=== PATIENT | female | born 1995 | race Caucasian/White ===

== ENCOUNTER 2016-04-09 12:37 | Inpatient (IN) | payer BC ==
[2016-04-09 13:23] LABS: AMPHETAMINE SCREEN URINE NOT DETECTED; BARBITURATE SCREEN URINE NOT DETECTED; BENZODIAZEPINE SCREEN URINE NOT DETECTED; COCAINE SCREEN URINE NOT DETECTED; METHADONE SCREEN URINE NOT DETECTED; METHAMPHETAMINE SCREEN NOT DETECTED; OPIATE SCREEN URINE NOT DETECTED; OXYCODONE SCREEN URINE NOT DETECTED; PHENCYCLIDINE SCREEN URINE NOT DETECTED; PROPOXYPHENE SCREEN URINE NOT DETECTED; THC SCREEN URINE NOT DETECTED; TRICYCLIC ANTIDEPRESSANT SCRN NOT DETECTED
[2016-04-09 13:24] LABS: BASO % 0.6 % (0-6); EOS % 2.1 % (0-6); HEMATOCRIT 43.9 % (35.0-47.0); HEMOGLOBIN 15.9 gm/dl (11.6-16.0); LYMPH % 19.6 % (16-45); MEAN CELL VOLUME 77.6 fl (81-97); MEAN CORPUSCULAR HGB CONC 36.2 g/dl (32-36); MEAN PLATELET VOLUME 11.2 fl (7.4-10.4); MONO % 9.7 % (0-9); PLATELET COUNT 316 K/uL (130-400); RED BLOOD COUNT 5.66 M/uL (3.80-5.40); RED CELL DISTRIBUTION WIDTH 13.3 % (11.5-14.5)
[2016-04-09 13:34] LABS: ANION GAP 19.9 (7-16); BLOOD UREA NITROGEN 12 mg/dL (7-17); CARBON DIOXIDE 11.1 mmol/L (22-30); CREATINE PHOSPHOKINASE 73 U/L (30-135); CREATININE 0.9 mg/dL (0.52-1.04); GLUCOSE,RANDOM 378 mg/dL (70-110)
[2016-04-09 13:46] LABS: CKMB 1.9 ug/L (0-6)
[2016-04-09 13:50] LABS: TROPONIN I < 0.012 ng/mL (0.00-0.034)
[2016-04-09] MEDS ORDERED: PROMETHAZINE HCL 25 MG/ML VIAL IVP ONE ×2 (13:55→15:56)
--- NOTE | 2016-04-09 14:05 | Emergency Department Record ---
History of Present Illness - General Chief Complaint: Chest Pain Stated Complaint: CHEST PAIN Time Seen by Provider: 04/09/16 12:46 Source: Patient, Family Mode of Arrival: Ambulatory Limitations: No limitations - History of Present Illness Initial Comments: pt started feeling like her bp was high on saturday and had nausea and vomiting x 2 and developed chest pain today. she felt flushed. she denies any new meds. Onset/Timin -: Days(s) Onset: During rest Pain Location: Substernal Pain Radiation: None Severity: Mild Severity scale (1-10): 2 Quality: Aching Consistency: Constant Improves With: Nothing Worsens With: Nothing Anginal Symptoms: Nausea, Vomiting Treatments Prior to Arrival: Other Treatment Prior to Arrival Comment:: Motrin last night - Related Data Home Medications Medication Instructions Recorded Confirmed Last Taken Duloxetine HCl 30 mg PO BID cap 01/17/16 04/09/16 Unknown Metformin HCl 500 mg PO BID tab 01/17/16 04/09/16 04/08/16 Allergies Allergy/AdvReac Type Severity Reaction Status Date / Time amoxicillin [Amoxicillin] Allergy RASH Verified 04/09/16 12:39 cephalexin monohydrate Allergy RASH Verified 04/09/16 12:39 [From Keflex] Penicillins Allergy rash Verified 04/09/16 12:39 sulfamethoxazole Allergy RASH Verified 04/09/16 12:39 [From Bactrim] trimethoprim [From Bactrim] Allergy RASH Verified 04/09/16 12:39 Travel Screening - Travel/Exposure Within Last 30 Days Have you traveled within the last 30 days?: No Review of Systems Reviewed: No additional complaints except as noted below Constitutional: Reports: As per HPI. Denies: Chills, Fever, Malaise, Night sweats, Weakness, Weight change Eyes: Reports: As per HPI. Denies: Eye discharge, Eye pain, Photophobia, Vision change ENT: Reports: As per HPI. Denies: Congestion, Dental pain, Ear pain, Epistaxis , Hearing loss, Throat pain Respiratory: Reports: As per HPI. Denies: Cough, Dyspnea, Hemoptysis, Stridor, Wheezes Cardiovascular: Reports: As per HPI. Denies: Arrhythmia, Chest pain, Dyspnea on exertion, Edema, Murmurs, Orthopnea, Palpitations, Paroxysmal nocturnal dyspnea, Rheumatic Fever, Syncope Endocrine: Reports: As per HPI. Denies: Fatigue, Heat or cold intolerance, Polydipsia, Polyuria Gastrointestinal: Reports: As per HPI. Denies: Abdominal pain, Constipation, Diarrhea, Hematemesis, Hematochezia, Melena, Nausea, Vomiting Genitourinary: Reports: As per HPI. Denies: Abnormal menses, Discharge, Dyspareunia, Dysuria, Frequency, Hematuria, Incontinence, Retention, Urgency Musculoskeletal: Reports: As per HPI. Denies: Arthralgia, Back pain, Gout, Joint swelling, Myalgia, Neck pain Skin: Reports: As per HPI. Denies: Bruising, Change in color, Change in hair/ nails, Lesions, Pruritus, Rash Neurological: Reports: As per HPI. Denies: Abnormal gait, Confusion, Headache, Numbness, Paresthesias, Seizure, Tingling, Tremors, Vertigo, Weakness Psychiatric: Reports: As per HPI. Denies: Anxiety, Auditory hallucinations, Depression, Homicidal thoughts, Suicidal thoughts, Visual hallucinations Hematological/Lymphatic: Reports: As per HPI. Denies: Anemia, Blood Clots, Easy bleeding, Easy bruising, Swollen glands Past Medical History - SOCIAL HISTORY Smoking Status: Never smoker Alcohol Use: None Drug Use: None - RESPIRATORY Hx Respiratory Disorders: No - CARDIOVASCULAR Hx Cardio Disorders: No - NEURO Hx Neuro Disorders: No - GI Hx GI Disorders: No - Hx Genitourinary Disorders: Yes Comment:: Polycystic Ovaries - ENDOCRINE Hx Endocrine Disorders: Yes Hx Diabetes: (boderline) - MUSCULOSKELETAL Hx Musculoskeletal Disorders: No - PSYCH Hx Psych Problems: Yes Hx Anxiety: Yes Hx Depression: Yes - HEMATOLOGY/ONCOLOGY Hx Hematology/Oncology Disorders: No Family Medical History Any Significant Family History?: Yes Hx Diabetes: Father Hx HTN: Mother, Grandparents Physical Exam - General General Appearance: Alert, Oriented x3, Cooperative, Mild distress - Head Head exam: Normal inspection - Eye Eye exam: Normal appearance, PERRL, EOMI Pupils: Normal accommodation - ENT ENT exam: Normal exam, Mucous membranes dry, Normal external ear exam, Normal orophraynx Ear exam: Normal external inspection. negative: External canal tenderness Nasal Exam: Normal inspection. negative: Discharge, Sinus tenderness Mouth exam: Normal external inspection, Tongue normal Teeth exam: Normal inspection. negative: Dental caries Throat exam: Normal inspection. negative: Tonsillar erythema, Tonsillar exudate - Neck Neck exam: Normal inspection, Full ROM. negative: Tenderness - Respiratory Respiratory exam: Normal lung sounds bilaterally. negative: Respiratory distress - Cardiovascular Cardiovascular Exam: Normal rhythm, Normal heart sounds, Tachycardia - GI/Abdominal GI/Abdominal exam: Soft, Normal bowel sounds. negative: Tenderness - Rectal Rectal exam: Deferred - exam: Deferred - Extremities Extremities exam: Normal inspection, Full ROM, Normal capillary refill. negative: Tenderness - Back Back exam: Reports: Normal inspection, Full ROM. 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 ADM/Transfer/OP Study) - Data Complexity MDM Data: Labs Ordered and/or Reviewed, X-Ray Ordered and/or Reviewed, EKG Ordered and/or Reviewed - Lab Data Result diagrams: 04/09/16 13:00 04/09/16 13:00 Lab Results 04/09/16 04/09/16 04/09/16 Range/Units 12:50 13:00 13:00 WBC 12.0 (4.2-12.2) K/uL RBC 5.66 H (3.80-5.40) M/uL Hgb 15.9 (11.6-16.0) gm/dl Hct 43.9 (35.0-47.0) % MCV 77.6 L (81-97) fl MCH 28.0 (27-33) pg MCHC 36.2 H (32-36) g/dl RDW 13.3 (11.5-14.5) % Plt Count 316 (130-400) K/uL MPV 11.2 H (7.4-10.4) fl Gran % 68.0 (47-80) % Lymphocytes % 19.6 (16-45) % Monocytes % 9.7 H (0-9) % Eosinophils % 2.1 (0-6) % Basophils % 0.6 (0-6) % D-Dimer 0.30 (0-0.59) mg/L FEU Sodium (136-145) mmol/L Potassium (3.5-5.1) mmol/L Chloride (98-107) mmol/L Carbon Dioxide (22-30) mmol/L Anion Gap (7-16) BUN (7-17) mg/dL Creatinine (0.52-1.04) mg/dL Estimated GFR Random Glucose (70-110) mg/dL Calcium (8.5-10.1) mg/dL Creatine Kinase (30-135) U/L CK-MB (CK-2) (0-6) ug/L Troponin I (0.00-0.034) ng/mL Urine Opiates Screen Not detected Ur Oxycodone Screen Not detected Urine Methadone Screen Not detected Ur Propoxyphene Screen Not detected Ur Barbituates Screen Not detected Ur Tricyclics Screen Not detected Ur Phencyclidine Scrn Not detected Ur Amphetamine Screen Not detected U Methamphetamines Scrn Not detected U Benzodiazepines Scrn Not detected Urine Cocaine Screen Not detected Urine Cannabis Screen Not detected 04/09/16 Range/Units 13:00 WBC (4.2-12.2) K/uL RBC (3.80-5.40) M/uL Hgb (11.6-16.0) gm/dl Hct (35.0-47.0) % MCV (81-97) fl MCH (27-33) pg MCHC (32-36) g/dl RDW (11.5-14.5) % Plt Count (130-400) K/uL MPV (7.4-10.4) fl Gran % (47-80) % Lymphocytes % (16-45) % Monocytes % (0-9) % Eosinophils % (0-6) % Basophils % (0-6) % D-Dimer (0-0.59) mg/L FEU Sodium 132 L (136-145) mmol/L Potassium 3.7 (3.5-5.1) mmol/L Chloride 101 (98-107) mmol/L Carbon Dioxide 11.1 L (22-30) mmol/L Anion Gap 19.9 H (7-16) BUN 12 (7-17) mg/dL Creatinine 0.9 (0.52-1.04) mg/dL Estimated GFR TNP Random Glucose 378 H (70-110) mg/dL Calcium 9.4 (8.5-10.1) mg/dL Creatine Kinase 73 (30-135) U/L CK-MB (CK-2) 1.9 (0-6) ug/L Troponin I < 0.012 (0.00-0.034) ng/mL Urine Opiates Screen Ur Oxycodone Screen Urine Methadone Screen Ur Propoxyphene Screen Ur Barbituates Screen Ur Tricyclics Screen Ur Phencyclidine Scrn Ur Amphetamine Screen U Methamphetamines Scrn U Benzodiazepines Scrn Urine Cocaine Screen Urine Cannabis Screen - EKG Data -: EKG Interpreted by Me EKG: Abnormal EKG (t wave inversions) Disposition Disposition: Admit Clinical Impression: Nonketotic hyperglycinemia UTI (urinary tract infection) Qualifiers: Urinary tract infection type: acute cystitis Hematuria presence: with hematuria Qualified Code(s): N30.01 - Acute cystitis with hematuria Disposition: Still a Patient at [facility] Decision to Admit: Admit from ER Decision to Admit Date: 04/09/16 Decision to Admit Time: 17:04
[2016-04-09] MEDS ORDERED: HUMULIN R 100 UNIT/ML VIAL SQ ONE ×2 (14:11→16:44)
[2016-04-09] MEDS ORDERED: 0.9 % SODIUM CHLORIDE 1,000 ML BAG IV ONE (14:11)
[2016-04-09 14:14] LABS: URINE APPEARANCE CLEAR; URINE BILIRUBIN MODERATE (NEGATIVE); URINE BLOOD LARGE (NEGATIVE); URINE COLOR ORANGE; URINE KETONE 80 mg/dL (NEGATIVE); URINE LEUKOCYTE ESTERASE NEGATIVE (NEGATIVE); URINE NITRITE POSITIVE (NEGATIVE); URINE UROBILINOGEN 0.2 E.U./dL (0.20 - 1.00)
[2016-04-09 14:15] LABS: URINE BACTERIA 1+; URINE EPITHELIAL CELLS 21 - 35 (FEW); URINE RBC 36 - 50 (NONE SEEN); URINE WBC 21 - 35 (0-2/hpf)
[2016-04-09] MEDS ORDERED: HUMULIN R 100 UNIT/ML VIAL SC ONE ×2 (14:25→16:44)
[2016-04-09] MEDS ORDERED: CIPROFLOXACIN LACTATE/D5W 400 MG in DEXTROSE 1 BAG IVPB ONE (15:17)
[2016-04-09] MEDS ORDERED: CIPROFLOXACIN LACTATE/D5W 400 MG in DEXTROSE 1 BAG IVPB SCH (18:22)
[2016-04-09] MEDS ORDERED: ACETAMINOPHEN 500 MG TABLET PO PRN (18:22)
[2016-04-09] MEDS ORDERED: 0.9 % SODIUM CHLORIDE 1000ML 1,000 ML IV PRN (18:22)
[2016-04-09] MEDS ORDERED: PNEUM 23-VAL ADULT IM ONE (18:47)
[2016-04-09] MEDS: 0.9 % SODIUM CHLORIDE 1000ML 1,000 ML IV PRN (20:51)
[2016-04-09 20:56] LABS: ANION GAP 14.2 (7-16); BLOOD UREA NITROGEN 11 mg/dL (7-17); CARBON DIOXIDE 14.8 mmol/L (22-30); CREATININE 0.7 mg/dL (0.52-1.04); GLUCOSE,RANDOM 401 mg/dL (70-110)
[2016-04-09] MEDS ORDERED: POTASSIUM CHLORIDE 20 MEQ TABLET PO ONE (21:48)
[2016-04-09] MEDS ORDERED: INSULIN REGULAR, HUMAN 100 UNIT in 0.9 % SODIUM CHLORIDE 100ML 100 ML IV SCH ×2 (22:00)
[2016-04-09] MEDS: DULOXETINE HCL 30 MG CAPSULE.DR PO SCH (22:22)
[2016-04-10 01:24] LABS: ANION GAP 13.5 (7-16); CARBON DIOXIDE 14.5 mmol/L (22-30)
[2016-04-10] MEDS ORDERED: POTASSIUM CHLORIDE 20 MEQ TABLET PO ONE ×3 (03:03→18:28)
[2016-04-10] MEDS: 0.9 % SODIUM CHLORIDE 1000ML 1,000 ML IV PRN (03:10)
[2016-04-10] MEDS: POTASSIUM CHLORIDE IV SCH ×4 (03:14→23:40)
[2016-04-10] MEDS: DEXTROSE IV SCH ×4 (03:14→23:40)
[2016-04-10] MEDS: [UNRECOGNIZED DRUG - OTHER] IV SCH ×4 (03:14→23:40)
[2016-04-10 05:16] LABS: ANION GAP 11.8 (7-16); CARBON DIOXIDE 16.2 mmol/L (22-30)
[2016-04-10] MEDS: INSULIN REGULAR, HUMAN 100 UNIT in 0.9 % SODIUM CHLORIDE 100ML 100 ML IV SCH ×4 (06:45→16:52)
--- NOTE | 2016-04-10 07:33 | RADIOLOGY REPORT ---
EXAM: CHEST, TWO VIEWS HISTORY: HYPERTENSION. MID CHEST PAIN WITH EXERTION FOR THREE DAYS. TECHNIQUE: Upright PA and lateral views of the chest were obtained. Comparison: None. FINDINGS: The cardiomediastinal silhouette is normal in size and configuration. The pulmonary vasculature is nondilated. The lungs and pleural spaces are clear. The osseous structures are intact. IMPRESSION: NEGATIVE CHEST EXAMINATION. JOB NUMBER: [id number] MTDD
[2016-04-10 09:40] LABS: ANION GAP 9.5 (7-16); CARBON DIOXIDE 18.5 mmol/L (22-30)
[2016-04-10 09:44] LABS: ACETONE,SERUM POSITIVE (NEGATIVE)
[2016-04-10] MEDS: CIPROFLOXACIN HCL 500 MG TABLET PO SCH ×2 (09:56→22:23)
[2016-04-10] MEDS: DULOXETINE HCL 30 MG CAPSULE.DR PO SCH (09:56)
[2016-04-10 10:19] LABS: CKMB 0.6 ug/L (0-6); TROPONIN I < 0.012 ng/mL (0.00-0.034)
[2016-04-10] MEDS: ENOXAPARIN 40 MG/0.4 ML SYR SQ SCH (10:32)
[2016-04-10] MEDS: NOVOLOG FLEXPEN (INSULIN ASPART) 100 UNITS/ML SQ SCH ×3 (12:28→22:31)
[2016-04-10 13:48] LABS: ACETONE,SERUM POSITIVE (NEGATIVE)
[2016-04-10 13:54] LABS: ANION GAP 10.2 (7-16); CARBON DIOXIDE 19.8 mmol/L (22-30)
[2016-04-10 17:52] LABS: ACETONE,SERUM POSITIVE (NEGATIVE); ANION GAP 10.3 (7-16); CARBON DIOXIDE 20.7 mmol/L (22-30)
[2016-04-10] MEDS ORDERED: LEVEMIR FLEXTOUCH 100 UNIT/ML INSULIN PEN SQ ONE (18:25)
[2016-04-11] MEDS: [UNRECOGNIZED DRUG - OTHER] IV SCH (05:49)
[2016-04-11] MEDS: POTASSIUM CHLORIDE IV SCH (05:49)
[2016-04-11] MEDS: DEXTROSE IV SCH (05:49)
[2016-04-11 06:31] LABS: ANION GAP 11.4 (7-16); BLOOD UREA NITROGEN 4 mg/dL (7-17); CARBON DIOXIDE 22.6 mmol/L (22-30); CREATININE 0.5 mg/dL (0.52-1.04); GLUCOSE,RANDOM 290 mg/dL (70-110)
[2016-04-11] MEDS: NOVOLOG FLEXPEN (INSULIN ASPART) 100 UNITS/ML SQ SCH ×3 (08:12→12:04)
--- NOTE | 2016-04-11 09:25 | History and Physical Report ---
CHIEF COMPLAINT: Vomiting, diabetic ketoacidosis, new onset diabetes mellitus, type 1. HISTORY OF PRESENT ILLNESS: This 20-year-old female presented to the emergency department stating she had epigastric abdominal pain. She stated she thought her blood pressure was high. She was complaining of lower chest pain, upper abdominal pain, and vomiting. This started on Saturday, three days prior to admission and coming to the emergency department. She was evaluated by Dr. Senior and was diagnosed with hyperglycemic diabetes mellitus. However looking over the labs, it looks more like diabetic ketoacidosis from type 1 diabetes. Initially the acetone was read back to me as negative in the emergency department, but looking at the chart, it is a difficult read on the computer. It is actually 1:16 on acetone. She states that she started vomiting on Saturday, two days prior to admission, three to four times. Saturday she had a headache and vomiting. Saturday she was then feeling very poorly and was dehydrated and she came to the emergency department for evaluation. Her blood sugar was 378. Her acetone was positive at 1:16. Her electrolytes revealed acidosis. The C02 was 11.1. Potassium was 3.7. The sodium was 133. BUN was 12. Creatinine was 0.9. She was given intravenous fluids and was given four units of insulin in the emergency department subcutaneously. She was given at least one to two liters of normal saline and was admitted to the floor for uncontrolled diabetes mellitus. PAST MEDICAL HISTORY: Polycystic ovarian disease. She was on metformin for polycystic ovarian disease. She had a normal sugar in our office in about October of 2015. DIAGNOSTIC DATA: Her EKG showed nonspecific T-wave changes in the inferior leads, T-wave inversion in 2, 3, and AVF. Cardiac enzymes were negative at two time points. LABORATORY DATA: As stated, the acetone was 116. The urinalysis showed signs of a urinary tract infection versus contamination. HCG is negative. Positive ketones in the urine and blood with positive nitrites. As stated, the C02 was 11. Sodium was 133. Potassium was 3.7 initially but dropped down. MEDICATIONS ON ADMISSION: She is on duloxetine 30 mg b.i.d. for anxiety and depression. She was taking metformin 500 mg b.i.d., but she states she really only was taking it once a day and a lot of times was forgetting it. ALLERGIES: She is allergic to amoxicillin, Keflex, penicillin, Bactrim, and trimethoprim. FAMILY/PSYCHOSOCIAL HISTORY: Her dad has diabetes and is overweight. The diabetes probably came on in his 40s, but she was not sure because her mom and dad are . She works third shift at [employer]. REVIEW OF SYSTEMS: HEENT: No upper respiratory infection symptoms, cough, cold, or congestion. Cardiovascular: No chest pain, palpitations, or arrhythmias. Respiratory: No cough, cold, or congestion. Gastrointestinal: See Chief Complaint. She has vomiting, diarrhea, and epigastric abdominal pain. Genitourinary: No dysuria, hematuria, frequency, or burning on urination. Musculoskeletal: No joint or bone abnormalities. Neurologic: No cerebrovascular accident, paralysis, or paraesthesias. Gynecologic: She does not have periods very often because of her polycystic ovarian disease. That was being treated with metformin. Endocrine: No diabetes or hypothyroidism. Integument: No rash, ulcers, changing moles, or yellow skin. PHYSICAL EXAMINATION: General: Height is 5 feet, 5 inches. Weight is 210 pounds. Vital Signs: In the emergency department, pulse was 108, blood pressure was 147 /77, respiratory rate was 60, pulse oximetry was 98% on room air. HEENT: Pupils are equal, round, and reactive to light and accommodation. Extraocular muscles are intact. The throat is clear. The nose is clear. The tympanic membranes are david. Neck: The neck is supple. No jugular venous distension. No hepatojugular reflex. No carotid bruit. The thyroid is smooth. Cardiovascular: Regular rate and rhythm without murmurs, clicks, rubs, or gallops. Respiratory: Clear to auscultation and percussion. Abdomen: She is tender in the epigastric area, but she states that it is feeling much better. No rebound or rigidity. Soft and nontender. No hepatosplenomegaly. No masses. No tenderness. Bowel sounds are active. No bruit. Extremities: No pitting edema. No cyanosis. No clubbing. Full range of motion. Peripheral pulses are good. Breasts, Gynecological, and Rectal Examinations: Deferred. Neurological Examination: Cranial nerves II through XII are intact. No gross defect. Sensation is normal. Strength is normal. Deep tendon reflexes are equal bilaterally. Babinski is negative. Mental Status: Alert and oriented times three. IMPRESSIONS: 1. Diabetic ketoacidosis. 2. New onset diabetes mellitus, type 1. 3. Urinary tract infection; urinalysis showed white blood cells, red blood cells, bacteria, and epithelial cells. She was started on Cipro twice a day. 4. Overweight. Her BMI is 35.0. 5. Polycystic ovarian disease. 6. Anxiety. PLAN: Switch to intravenous insulin, regular insulin drip. Follow the potassium, acetone, and electrolytes. Will switch over to long-acting insulin after her acidosis clears. Hal Aguilar D.O. Date Time JOB NUMBER: [id number] MTDD
[2016-04-11] MEDS: CIPROFLOXACIN HCL 500 MG TABLET PO SCH (10:07)
[2016-04-11] MEDS: ENOXAPARIN 40 MG/0.4 ML SYR SQ SCH (10:07)
--- NOTE | 2016-04-11 10:09 | Discharge Note ---
Discharge Note - Date Date of Discharge Note: 04/11/16 Disposition: Home, Self-Care Condition: (1) Good Additional Instructions: follow up with Dr. Aguilar on April 11 am check glucose before meals and record in the glucose log please give a glucose log to go home. scale for novolog flex pen use one unit of novolog for 20mg/dl over 180 before each meal add this to 5 units of novolog for each meal for the food you are going to eat. please set up referral to set our Special Procedures Technologist Lisa as outpatient Prescriptions: Insulin Detemir [Levemir Flextouch] 30 unit SQ QHS #3 syringe Ciprofloxacin HCl [Cipro] 500 mg PO Q12HR #14 tablet Insulin Aspart [Novolog Flexpen] 5 unit SQ TIDINS #3 ml Insulin Aspart [Novolog Flexpen] 1 unit SQ TIDINS #3 ml Forms: Patient Portal Access
[2016-04-11] MEDS ORDERED: NOVOLOG FLEXPEN (INSULIN ASPART) 100 UNITS/ML SQ SCH (11:45)
--- NOTE | 2016-04-11 13:03 | Discharge Summary ---
DATE OF DISCHARGE: 04/11/2016 at about 11:00 a.m. DISCHARGE DIAGNOSES: 1. DIABETES MELLITUS, TYPE 1. 2. DIABETIC KETOACIDOSIS, RESOLVED. 3. OVERWEIGHT; HER BMI IS 35. 4. POLYCYSTIC OVARIAN DISEASE. 5. URINARY TRACT INFECTION, ON CIPRO. ATTENDING PHYSICIAN: Hal Aguilar D.O. REASON FOR HOSPITALIZATION: Vomiting. New onset diabetes mellitus, type 1. Diabetic ketoacidosis. HISTORY OF THE PRESENT ILLNESS: This 20-year-old female presented to the emergency department stating she had epigastric abdominal pain. She stated that she thought her blood pressure was high. She was complaining of this pain which is kind of in the lower chest and upper abdomen. She also had vomiting which started two to three days prior to coming to the emergency department. She was evaluated in the emergency department by Dr. Senior and was diagnosed with hypoglycemic diabetes mellitus. She was admitted to the hospital for further care and evaluation. SIGNIFICANT FINDINGS FROM EXAMINATION: LABORATORY DATA: Her acetone was positive at 1 to 16. Her electrolytes showed a C02 of 11.1. Potassium was 3.7, sodium was 133, BUN was 12, creatinine was 0.9. Her white blood cell count was 12,000. Hemoglobin was 15.9. Her urinalysis showed red blood cells of 36 to 50. White blood cells of 21 to 35. Epithelial cells 21 to 35, 1+ bacteria. Positive nitrite. A large amount of ketones, 80 mg per deciliter. A large amount of glucose in the urine at 250 mg per deciliter. Her fasting random sugar in the emergency department was 378 initially. Venous pH was 7.2. D-dimer was 0.3. DIAGNOSTIC DATA: The chest x-ray showed no acute changes. Negative chest. The EKG showed tachycardia. The rate was actually 99; just basically at the upper limits of normal. Normal sinus rhythm with T-wave inversion at 2, 3, and AVF. Nonspecific findings. The cardiac enzymes were negative at two time points of CKMB and troponin-I. THERAPY PROVIDED: The patient was given intravenous fluids in the emergency department; two liters of normal saline. She was admitted to the hospital with one shot of insulin, four units, subcutaneously. After my evaluation of the chart and discussion with the nurses, she was started on an insulin drip at four units per hour. She was hydrated with normal saline 200 mL per hour. She had serial Acu-Checks, serial electrolytes, and serial acetones. Her potassium was followed and supplemented her potassium as she improved her acidosis. She was switched over to Levemir 25 units inpatient with coverage of NovoLog FlexPen before meals and at bedtime. Using a scale of 1 unit for every 20 over 180 before meals and at bedtime. She had a consultation with the dietitian, Lisa. She talked with her about diet. Also Nursing educated her on using the Acu-Check machine and how to give herself subcutaneous shots. The patient was feeling better about going home. She was feeling better and was anxious to go home. We will discharge her. HOSPITAL COURSE: Her last set of labs revealed an acetone of 1 to 2. Her electrolytes had normalized. Potassium was 3.7. Sodium was 136, chloride was 102. C02 was 22.6. Anion gap was 11, BUN was 4.0, creatinine was 0.5. Her sugars are still running a little bit high at 290 this morning. However, she is learning about how to address that before meals. We are going to bump up the Levemir to 30 units at h.s. Her hemoglobin A1C was 11.29. CONDITION AT DISCHARGE: Much improved. DISCHARGE INSTRUCTIONS: Follow up with Dr. Aguilar on April 16 at 11:00 a.m. We will give her a glucose log so she can record her sugars before meals and at h.s. and how much insulin she is giving herself. We are starting her off with Levemir Flex Touch 30 units at h.s. She is also using NovoLog Flex regular insulin at five units with each meal and also coverage with scale for the sugar with the Acu-Check before the meal; 1 unit for every 20 mg over 180. We will stop the duloxetine because of the problems with the QT elongation. Cipro 500 mg b.i.d. for seven more days. Metformin 500 mg will be restarted with meals. I also educated her on the low sugar reaction as well as the high sugar reaction. We talked about the physiology of insulin and glucose and eating. Activity as tolerated. Diabetic diet was discussed by Lisa. Will follow up with the diet that she recommends. Increase activity in the hopes of losing weight in the next six months to a year. Hal Aguilar D.O. Date Time JOB NUMBER: [id number] [facility]
[2016-04-11] MEDS ORDERED: LEVEMIR FLEXTOUCH 100 UNIT/ML INSULIN PEN SQ SCH ×2 (22:00)
== END 2016-04-11 13:30 | disposition home or self-care (01) | DRG 638 ==
LOC: ER 12:37 → MEDSURG 18:13
PROVIDERS: ADMIT Emergency Medicine; ATTEND Emergency Medicine
DX: E10.10 Type 1 diabetes mellitus with ketoacidosis without coma (principal); N39.0 Urinary tract infection, site not specified; E66.9 Obesity, unspecified; Z68.35 Body mass index [BMI] 35.0-35.9, adult; Z71.3 Dietary counseling and surveillance; E28.2 Polycystic ovarian syndrome
CPT/HCPCS: 36416; 71020; 80048; 80051; 81001; 81025; 82009; 82550; 82553; 82800; 82948; 83036; 84443; 84484; 85025; 85379; 85651; 87086; 93005; 93010; 96365; 96375; 99285; G0477; J1650; J2550; J3480; J7030

== ENCOUNTER 2018-11-23 16:59 | Emergency (ER) | payer BC ==
[2018-11-23] MEDS ORDERED: KETOROLAC 30 MG/ML VIAL IVP ONE (17:59)
[2018-11-23] MEDS ORDERED: 0.9 % SODIUM CHLORIDE 1000ML 1,000 ML IV SCH (18:00)
--- NOTE | 2018-11-23 18:03 | Emergency Department Record ---
History of Present Illness - General Chief Complaint: Abdominal Pain Stated Complaint: ABD PAIN Time Seen by Provider: 11/23/18 17:58 Source: Patient Mode of Arrival: Ambulatory Limitations: No limitations - History of Present Illness Initial Comments: 23 yo female presents to ED for evaluation of left flank and left lower abdominal pain symptoms that began this morning. Patient reports dysuria symptoms, denies fevers, chills, or recent illness. Patient does report vomiting x 1 today, reports loose stools as well. Patient denies previous abdominal surgery/Patient reports a history of NIDDM at her baseline, denies history of HTN. MD Complaint: Abdominal pain Onset/Timin -: Hour(s) Location: LLQ Radiation: None Severity scale (1-10): 4 Quality: Sharp, Other Consistency: Constant, Intermittent Improves With: Nothing Worsens With: Nothing Associated Symptoms: Nausea, Vomiting - Related Data LMP Date: 11/09/18 Patient : No Allergies Allergy/AdvReac Type Severity Reaction Status Date / Time amoxicillin [Amoxicillin] Allergy RASH Verified 04/09/16 12:39 cephalexin monohydrate Allergy RASH Verified 04/09/16 12:39 [From Keflex] Penicillins Allergy rash Verified 04/09/16 12:39 sulfamethoxazole Allergy RASH Verified 04/09/16 12:39 [From Bactrim] trimethoprim [From Bactrim] Allergy RASH Verified 04/09/16 12:39 Travel Screening - Travel/Exposure Within Last 30 Days Have you traveled within the last 30 days?: No Review of Systems Constitutional: Denies: Chills, Fever, Malaise, Night sweats Eyes: Denies: Eye discharge, Eye pain ENT: Denies: Congestion, Ear pain, Epistaxis Respiratory: Denies: Cough, Dyspnea Cardiovascular: Denies: Chest pain, Dyspnea on exertion Endocrine: Denies: Fatigue, Heat or cold intolerance Gastrointestinal: Reports: Abdominal pain, Nausea, Vomiting. Denies: Constipation Genitourinary: Denies: Incontinence, Retention Musculoskeletal: Reports: Back pain. Denies: Other Skin: Denies: Bruising, Change in color Neurological: Denies: Abnormal gait Psychiatric: Denies: Anxiety, Visual hallucinations Hematological/Lymphatic: Denies: Anemia, Blood Clots Past Medical History - SOCIAL HISTORY Smoking Status: Never smoker - RESPIRATORY Hx Respiratory Disorders: No - CARDIOVASCULAR Hx Cardio Disorders: No - NEURO Hx Neuro Disorders: No - GI Hx GI Disorders: No - Hx Genitourinary Disorders: Yes Comment:: Polycystic Ovaries - ENDOCRINE Hx Endocrine Disorders: Yes Hx Diabetes: Yes (boderline) - MUSCULOSKELETAL Hx Musculoskeletal Disorders: No - PSYCH Hx Psych Problems: Yes Hx Anxiety: Yes Hx Depression: Yes - HEMATOLOGY/ONCOLOGY Hx Hematology/Oncology Disorders: No Family Medical History Any Significant Family History?: Yes Hx Diabetes: Father Hx HTN: Mother, Grandparents Physical Exam - General General Appearance: Alert, Oriented x3, Cooperative, Mild distress, Other (BP reviewed, patient reports recent elevated BPs at her PCP, denies history of elevated BP at her baseline.) Limitations: No limitations - Head Head exam: Atraumatic, Normocephalic, Normal inspection Head exam detail: negative: Abrasion, Contusion, Villatoro's sign, General tenderness, Hematoma, Laceration - Eye Eye exam: Normal appearance. negative: Conjunctival injection, Periorbital swelling, Periorbital tenderness, Scleral icterus - ENT Ear exam: negative: Auricular hematoma, Auricular trauma Nasal Exam: negative: Active bleeding, Discharge, Dried blood, Foreign body Mouth exam: negative: Drooling, Laceration, Muffled voice, Tongue elevation - Neck Neck exam: Normal inspection. negative: Meningismus, Tenderness - Respiratory Respiratory exam: Normal lung sounds bilaterally. negative: Respiratory distress, Rhonchi, Stridor, Wheezes - Cardiovascular Cardiovascular Exam: Regular rate, Normal rhythm, Normal heart sounds - GI/Abdominal GI/Abdominal exam: Soft, Tenderness (TTP LLQ on examination, no rebound or guarding symptoms are present). negative: Rebound, Rigid - Rectal Rectal exam: Deferred - exam: Deferred - Extremities Extremities exam: Normal inspection. negative: Pedal edema, Tenderness - Back Back exam: Reports: CVA tenderness (L). Denies: CVA tenderness (R) - Neurological Neurological exam: Alert, Normal gait, Oriented X3 - Psychiatric Psychiatric exam: Normal affect, Normal mood - Skin Skin exam: Normal color. negative: Abrasion Type of lesion: negative: abrasion Course Vital Signs 11/23/18 17:26 Temperature 98.6 F Pulse Rate [ 110 H Pulse Ox Probe] Respiratory 16 Rate Blood Pressure 208/140 [Left Arm] Pulse Ox 98 - Reevaluation(s) Reevaluation #1: 11/23/18 18:39 Patient is back from CT imaging, BP continues to be elevated. Will administer Lopressor 5 mg IV and reassess for the possible need of labatolol drip. Reevaluation #2: 11/23/18 18:42 Laboratory studies were reviewed and appear grossly unremarkable for an acute process except: WBC 16.5 AG 17 Glucose 171 Reevaluation #3: 11/23/18 19:08 CT Abdomen and Pelvis: Large mass lower abdomen measuring [id number] ? adnexal in origin Possible 2nd mass with moderate FF present Patient's repeat blood pressure is 171/122 following Labatolol IV. Will initiate transfer to [facility] for further evaluation. Reevaluation #4: 11/23/18 19:18 Case was discussed with Dr. Post, will accept transfer at this time. Medical Decision Making - Lab Data Result diagrams: 11/23/18 18:15 11/23/18 18:15 Lab Results 11/23/18 Range/Units 17:10 POC Glucose 188 H (70-110) mg/dL Disposition Disposition: Transfer Clinical Impression: Hypertensive crisis Abdominal mass Qualifiers: Abdominal location: generalized Qualified Code(s): R19.07 - Generalized intra- abdominal and pelvic swelling, mass and lump Disposition: Acute Care Hospital Transfer Transfer To: [facility] Reason For Transfer: Hypertensive crisis, Abdominal pass Accepting Physician: Sejal Time Discussed w/Accepting Physician: 19:11 Condition: (2) Stable Forms: Patient Portal Access Time of Disposition: 19:11 Quality - Quality Measures Quality Measures: N/A - Blood Pressure Screening Does Patient Have Any of the Following: No Blood Pressure Classification: Hypertensive Reading Systolic Measurement: 171 Diastolic Measurement: 122 Screening for High Blood Pressure: < First Hypertensive BP, F/U Documented > [G8950] First Hypertensive Follow-up Interventions: Referral to alternative/primary care provider.
[2018-11-23 18:21] LABS: ABSOLUTE NEUTROPHIL COUNT 14.05; HEMATOCRIT 42.7 % (35.0-47.0); MEAN CELL VOLUME 78.2 fl (81-97); MEAN CORPUSCULAR HGB CONC 35.1 g/dl (32-36); MEAN PLATELET VOLUME 10.6 fl (7.4-10.4); PLATELET COUNT 248 K/uL (130-400); RED BLOOD COUNT 5.46 M/uL (3.80-5.40); RED CELL DISTRIBUTION WIDTH 12.8 % (11.5-14.5); WHITE BLOOD COUNT W/O DIFF 16.5 K/uL (4.2-12.2)
[2018-11-23 18:24] LABS: MEAN CORPUSCULAR HEMOGLOBIN 27.4 pg (27-33)
[2018-11-23 18:32] LABS: URINE APPEARANCE CLEAR; URINE BILIRUBIN NEGATIVE (NEGATIVE); URINE BLOOD NEGATIVE (NEGATIVE); URINE COLOR YELLOW; URINE GLUCOSE (UA) NEGATIVE (NEGATIVE); URINE KETONE NEGATIVE (NEGATIVE); URINE LEUKOCYTE ESTERASE NEGATIVE (NEGATIVE); URINE NITRITE NEGATIVE (NEGATIVE); URINE PROTEIN NEGATIVE (NEGATIVE); URINE UROBILINOGEN 0.2 E.U./dL (0.20 - 1.00)
[2018-11-23 18:33] LABS: BLOOD UREA NITROGEN 8 mg/dL (6-20); CREATININE 0.5 mg/dL (0.5-0.9); EST GLOMERULAR FILTRATION RATE > 60 mL/min
[2018-11-23 18:34] LABS: LIPASE 12 U/L (13-60); TOTAL PROTEIN 7.6 g/dL (6.6-8.7)
[2018-11-23 18:36] LABS: GLUCOSE,RANDOM 171 mg/dL (74-109)
[2018-11-23 18:38] LABS: ALB/GLOB RATIO 1.8 (1.1-1.8); ALBUMIN 4.9 g/dL (4.0-5.0); ALKALINE PHOSPHATASE 91 U/L (35-104); ALT/SGPT 17 U/L (<33); AST/SGOT 18 U/L (10.0-35.0)
[2018-11-23] MEDS ORDERED: METOPROLOL TART 5 MG/5 ML VIAL IV ONE (18:40)
--- NOTE | 2018-11-24 10:29 | CT SCAN REPORT ---
EXAM: EMERGENCY CT OF THE ABDOMEN AND PELVIS WITHOUT CONTRAST HISTORY: LEFT FLANK PAIN AND LEFT GROIN PAIN. TECHNIQUE: Axial CT scan of the abdomen and pelvis was obtained without oral or IV contrast. Comparison: None. FINDINGS: No calcified gallstones are seen within the gallbladder. No intrarenal calculi identified on either side. No hydronephrosis or hydroureter is seen with no definite ureteral calculus seen on either side and no bladder calculus evident. Evaluation of the bowel and viscera is extremely limited without oral or IV contrast, however, there does appear to be a large mass in the mid to lower abdomen measuring about 16 cm in transverse diameter x 13 cm in AP diameter and have a craniocaudal dimension of about 13.8 cm. This is incompletely evaluated without IV contrast, but has a noncontrast CT density of 29, a bit high for simple fluid. The superior extent of this mass is at the approximate L3 level in the mid abdomen and extends down inferiorly to about the S3 level in the mid pelvis. This may be of adnexal origin. This appears separate from the uterus and so does not appear to just represent a huge pedunculated leiomyoma. There is a suggestion of a second mass more inferiorly in the anterior aspect of the pelvis about 8 x 5.5 cm in diameter and 4.6 cm in craniocaudal length. It is difficult to determine if at least a component of this is just unopacified bowel, but could be either a pedunculated portion of the larger mass along its inferior extent, or a second mass. There is a small to moderate amount of free fluid in the pelvis. There is probably a small amount that tracks up in the right pericolic gutter inferior to the liver as well. Mild diffuse fatty infiltration of the liver with no definite focal hepatic mass identified. Mild splenomegaly measuring about 12.5 cm in AP x 5.3 cm in transverse diameters and having a craniocaudal length of about 10.8 cm. No obvious focal splenic mass evident. No definite adrenal, pancreatic, or left renal mass evident. 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 Retroaortic left renal vein, a developmental variant. I believe the appendix is identified as a normal caliber air containing structures on a few images adjacent to the right side of the huge abdominal mass in the right lower quadrant. No definite appendicitis evident. The lung bases appear essentially clear. No definite free intraperitoneal air identified. IMPRESSION: 1. NO DEFINITE URINARY TRACT CALCULI OR HYDRONEPHROSIS EVIDENT. 2. HUGE MID TO LOWER ABDOMINAL MASS. MEASUREMENTS ABOVE. 3. PROBABLY A SECOND SMALLER MASS ANTEROINFERIOR TO THIS LARGER MASS, QUESTIONABLY A PEDUNCULATED COMPONENT OF THE LARGER MASS OR ADJACENT SECOND MASS. THESE ARE NONSPECIFIC, ALTHOUGH MAY BE OF ADNEXAL ORIGIN. 4. A MODERATE AMOUNT OF FREE FLUID PARTICULARLY IN THE PELVIS. 5. 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 6. MILD SPLENOMEGALY. JOB NUMBER: [id number] [facility]
== END 2018-11-23 19:56 | disposition short-term general hospital (02) ==
LOC: ER 16:59
DX: I16.0 Hypertensive urgency (principal); R19.07 Generalized intra-abdominal and pelvic swelling, mass and lump; E11.9 Type 2 diabetes mellitus without complications
CPT/HCPCS: 99285 ×2; 96374; 96375; 83690; 80053; 36416; 82948; 81003; 85027; 74176; J1885; J7030

== ENCOUNTER 2019-05-11 20:36 | Observation (INO) | payer BC ==
[2019-05-11] MEDS ORDERED: CLINDAMYCIN 600MG/50ML PREMIX 600 MG/50 ML BAG IVPB ONE (20:58)
--- NOTE | 2019-05-11 20:59 | Emergency Department Record ---
History of Present Illness - General Chief complaint: Abscess Stated complaint: MASS ON BUTTOCKS Time Seen by Provider: 05/11/19 20:40 Source: Patient Mode of Arrival: Ambulatory Limitations: No limitations - History of Present Illness Initial comments: 23 yo female presents to ED for evaluation of soft-tissue swelling, pain to the right gluteal/perineal region which has been present for approximately 1 week. Patient denies fevers, chills, or recent illness. 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 Patient also reports a history of HTN. MD complaint: Abscess/boil Onset/Timin -: Week(s) Location: Buttocks Severity: Moderate Quality: Aching Consistency: Constant Improves with: None Worsens with: None Context: None Associated symptoms: Denies other symptoms Treatments Prior to Arrival: None - Related Data Allergies Allergy/AdvReac Type Severity Reaction Status Date / Time amoxicillin [Amoxicillin] Allergy RASH Verified 04/09/16 12:39 cephalexin monohydrate Allergy RASH Verified 04/09/16 12:39 [From Keflex] Penicillins Allergy rash Verified 04/09/16 12:39 sulfamethoxazole Allergy RASH Verified 04/09/16 12:39 [From Bactrim] trimethoprim [From Bactrim] Allergy RASH Verified 04/09/16 12:39 Review of Systems Constitutional: Denies: Chills, Fever, Malaise, Night sweats Eyes: Denies: Eye discharge, Eye pain ENT: Denies: Congestion, Ear pain, Epistaxis Respiratory: Denies: Cough, Dyspnea Cardiovascular: Denies: Chest pain, Dyspnea on exertion Endocrine: Denies: Fatigue, Heat or cold intolerance Gastrointestinal: Denies: Abdominal pain, Nausea, Vomiting Genitourinary: Denies: Incontinence, Retention Musculoskeletal: Denies: Arthralgia, Back pain Skin: Reports: Other (Swelling, pain right gluteal region). Denies: Bruising, Change in color Neurological: Denies: Abnormal gait, Confusion, Headache, Seizure Psychiatric: Denies: Anxiety Hematological/Lymphatic: Denies: Anemia, Blood Clots Past Medical History - SOCIAL HISTORY Smoking Status: Never smoker - RESPIRATORY Hx Respiratory Disorders: No - CARDIOVASCULAR Hx Cardio Disorders: No - NEURO Hx Neuro Disorders: No - GI Hx GI Disorders: No - Hx Genitourinary Disorders: Yes Comment:: Polycystic Ovaries - ENDOCRINE Hx Endocrine Disorders: Yes Hx Diabetes: Yes (boderline) - MUSCULOSKELETAL Hx Musculoskeletal Disorders: No - PSYCH Hx Psych Problems: Yes Hx Anxiety: Yes Hx Depression: Yes - HEMATOLOGY/ONCOLOGY Hx Hematology/Oncology Disorders: No Family Medical History Hx Diabetes: Father Hx HTN: Mother, Grandparents Physical Exam - General General Appearance: Alert, Oriented x3, Cooperative, Mild distress Limitations: No limitations - Head Head exam: Atraumatic, Normocephalic, Normal inspection Head exam detail: negative: Abrasion, Contusion, Villatoro's sign, General tenderness, Hematoma, Laceration - Eye Eye exam: Normal appearance. negative: Conjunctival injection, Periorbital swelling, Periorbital tenderness, Scleral icterus - ENT Ear exam: negative: Auricular hematoma, Auricular trauma Nasal Exam: negative: Active bleeding, Discharge, Dried blood, Foreign body Mouth exam: negative: Drooling, Laceration, Muffled voice, Tongue elevation - Neck Neck exam: Normal inspection. negative: Meningismus, Tenderness - Respiratory Respiratory exam: Normal lung sounds bilaterally. negative: Rales, Respiratory distress, Rhonchi, Stridor - Cardiovascular Cardiovascular Exam: Normal rhythm, Normal heart sounds, Tachycardia - GI/Abdominal GI/Abdominal exam: Soft. negative: Rebound, Rigid, Tenderness - Rectal Rectal exam: Deferred - exam: Deferred - Extremities Extremities exam: Normal inspection. negative: Pedal edema, Tenderness - Back Back exam: Denies: CVA tenderness (R), CVA tenderness (L) - Neurological Neurological exam: Alert, Normal gait, Oriented X3 - Psychiatric Psychiatric exam: Normal affect, Normal mood - Skin Skin exam: Erythema Type of lesion: Abscess Distribution of rash: Other (Gluteal/perineal region right buttock) Description of rash: Fluctuant Course Vital Signs 05/11/19 20:48 Temperature 99.8 F H Pulse Rate [ 123 H Left] Respiratory 18 Rate Blood Pressure 191/127 [Left Arm] Pulse Ox 96 - Reevaluation(s) Reevaluation #1: 05/11/19 20:57 Patient was seen and examined Will initiate evaluation including laboratory studies to exclude DKA, CT imaging to define the extent of gluteal abscess. Will administer Clindamycin as well IV. Reevaluation #2: 05/11/19 21:54 Laboratory studies were reviewed and appear grossly unremarkable for an acute process except for the following: Sodium 126 (pseudo-hyponatremia) CO2 18 AG 21 Glucose 487 pH 7.47 Lactic Acid 1.2 Insulin was ordered IV as well for hyperglycemia pending CT imaging results. Reevaluation #3: 05/11/19 22:46 CT Pelvis: 2.8x1.8 cm probable early abscess with surrounding cellulitis Patient was updated on all results thus far Clindamycin has completed infusion Dr. Williamson paged for consultation. Reevaluation #4: 05/11/19 23:07 Case was discussed with Dr. Williamson, will admit under Medicine with consultation for general surgery. Dr. Williamson with see the patient in consultation tomorrow for incision and drainage. Patient is in agreement with the plan of care as discussed. Reevaluation #5: 05/12/19 06:47 Case was discussed with Dr. Mahajan, will accept patient admission at this time. Medical Decision Making - Lab Data Result diagrams: 05/11/19 20:55 05/11/19 20:55 Disposition Disposition: Admit Clinical Impression: Perianal abscess Diabetes mellitus Qualifiers: Diabetes mellitus type: type 2 Diabetes mellitus fci insulin use: without fci use Diabetes mellitus complication status: with skin complications Diabetes mellitus complication detail: with other skin complication Qualified Code(s): E11.628 - Type 2 diabetes mellitus with other skin complications Disposition: Still a Patient at [facility] Decision to Admit: Admit from ER Decision to Admit Date: 05/11/19 Decision to Admit Time: 23:09 Condition: (2) Stable Time of Disposition: 23:09 Quality - Quality Measures Quality Measures: N/A - Blood Pressure Screening Does Patient Have Any of the Following: Active Dx of HTN Blood Pressure Classification: Hypertensive Reading Systolic Measurement: 132 Diastolic Measurement: 94 Screening for High Blood Pressure: Patient Exclusion, Hx of HTN [G9744]
[2019-05-11] MEDS ORDERED: 0.9 % SODIUM CHLORIDE 1000ML 1,000 ML IV SCH (21:00)
[2019-05-11 21:15] LABS: ABSOLUTE NEUTROPHIL COUNT 6.67; HEMOGLOBIN 15.1 gm/dl (11.6-16.0); MEAN CELL VOLUME 77.4 fl (81-97); MEAN CORPUSCULAR HGB CONC 38.7 g/dl (32-36); MEAN PLATELET VOLUME 10.6 fl (7.4-10.4); PLATELET COUNT 242 K/uL (130-400); RED BLOOD COUNT 5.04 M/uL (3.80-5.40); WHITE BLOOD COUNT W/O DIFF 9.3 K/uL (4.2-12.2)
[2019-05-11 21:28] LABS: BLOOD UREA NITROGEN 9 mg/dL (6-20); CREATININE 0.9 mg/dL (0.5-0.9); EST GLOMERULAR FILTRATION RATE > 60 mL/min
[2019-05-11 21:33] LABS: ALB/GLOB RATIO 1.1 (1.1-1.8); ALBUMIN 3.7 g/dL (4.0-5.0); ALKALINE PHOSPHATASE 120 U/L (35-104)
[2019-05-11 21:35] LABS: ACETONE,SERUM NEGATIVE (NEGATIVE)
[2019-05-11 21:51] LABS: GLUCOSE,RANDOM 487 mg/dL (74-109)
[2019-05-11] MEDS ORDERED: HUMULIN R 100 UNIT/ML VIAL IV ONE (21:55)
--- NOTE | 2019-05-11 22:36 | CT SCAN REPORT ---
EXAMINATION: CT of the Pelvis with Intravenous Contrast. EXAM DATE: 05/11/2019 10:11 PM TECHNIQUE: A standard CT pelvis protocol was performed with intravenous contrast. Sagittal and frey l images were reconstructed. IV Contrast: The type and amount of contrast is recorded within the medical record. INDICATION: right gluteal STS, induration COMPARISON: 11/23/2018 ENCOUNTER: Not applicable FINDINGS: Ureters & Bladder: Both distal ureters have a normal caliber and the urinary bladder is unremarkable . Gastrointestinal: Included large and small bowel segments in the pelvis are unremarkable. The appendi x is normal. Reproductive Organs: Unremarkable Lymphatic System: There is no adenopathy within the pelvis. Vasculature: The iliac arteries have a normal caliber. Peritoneum: There is no free fluid within the pelvis. Retroperitoneum: There is no retroperitoneal mass, hemorrhage, or hematoma. Abdominal Wall & Musculoskeletal: There is subcutaneous edema noted in the medial left gluteal fold w ith a small rounded region of decreased density noted measuring 2.8 x 1.8 cm that may represent an ea rly abscess/phlegmon. No suspicious bone lesions. 3-D imaging: Not performed. IMPRESSION: 1. Probable early left perianal abscess/phlegmon with associated cellulitis. Dictated by: Mary Kay Waters MD on 05/11/2019 10:30 PM. .
[2019-05-11] MEDS ORDERED: KETOROLAC 30 MG/ML VIAL IVP ONE (23:08)
[2019-05-11] MEDS ORDERED: MORPHINE SULFATE 5 MG/ML VIAL IVP PRN (23:22)
[2019-05-11] MEDS ORDERED: ONDANSETRON HCL IV 4 MG/2 ML VIAL IVP PRN (23:22)
[2019-05-11] MEDS ORDERED: 0.9 % SODIUM CHLORIDE 1000ML 1,000 ML IV ONE (23:22)
[2019-05-12] MEDS ORDERED: CLINDAMYCIN 600MG/50ML PREMIX 600 MG/50 ML BAG IVPB SCH ×2 (06:00→14:00)
[2019-05-12 07:48] LABS: ABSOLUTE NEUTROPHIL COUNT 4.58; HEMATOCRIT 35.8 % (35.0-47.0); HEMOGLOBIN 12.9 gm/dl (11.6-16.0); MEAN CORPUSCULAR HEMOGLOBIN 28.5 pg (27-33); MEAN PLATELET VOLUME 10.2 fl (7.4-10.4); PLATELET COUNT 182 K/uL (130-400); RED BLOOD COUNT 4.53 M/uL (3.80-5.40); RED CELL DISTRIBUTION WIDTH 13.7 % (11.5-14.5); WHITE BLOOD COUNT W/O DIFF 7.4 K/uL (4.2-12.2)
[2019-05-12 08:00] LABS: PLATELET ESTIMATE NORMAL (NORMAL)
[2019-05-12 08:04] LABS: BLOOD UREA NITROGEN 8 mg/dL (6-20); CREATININE 0.3 mg/dL (0.5-0.9); EST GLOMERULAR FILTRATION RATE > 60 mL/min; GLUCOSE,RANDOM 258 mg/dL (74-109)
[2019-05-12] MEDS ORDERED: METFORMIN 500 MG TABLET PO SCH (10:00)
[2019-05-12] MEDS ORDERED: FLU VAC QS 2019-20 (INPT, 6MO+) 60MCG/0.5ML IM ONE (10:15)
--- NOTE | 2019-05-12 10:54 | History & Physical ---
History of Present Illness - Date of Service Date of Service for History & Physical: 05/12/19 - History of Present Illness Admitting Diagnosis: Tabitha-anal abscess/cellulitis. HTN. Diabetes Mellitus History of Present Illness: Pt has h/o ovarian cancer, uncontrolled diabetes ED course 05/11: - pt presented to ED 1 week after noticing bump in the perianal area that was enlarging. - She states that it progressively got more tender. - She states that she takes metformin at home 500mg BID and is on SSI but is not compliant. - She doesn't really check her sugar at home. - She has h/o ovarian carcinoma, which was removed. Follows with oncology Q 6 mo nths. - Labs: glucose increased but no signs of DKA. Hyponatremia 128. - VS: afebrile, elevated BP - Pt was admitted for IV abx and abcess drainage by Dr. Williamson in AM. Pt started on metformin and clinda. Hospital course 05/12: - Pt is feeling much better in terms of pain today. - She states that the pain is resolved almost completely. - No complaints, states that she would like to go home today if possible. Travel/Exposure Screening - Travel/Exposure Within Last 30 Days Have you traveled within the last 30 days?: No - Travel/Exposure Within Last Year Have you traveled outside the [place] in the last year?: No - Additonal Travel/Exposure Details Have you been exposed to anyone with a communicable illness?: No - Travel Symptoms Symptom Screening: None Review of Systems Constitutional: Reports: Chills. Denies: Fever, Malaise, Night sweats Eyes: Denies: Eye discharge, Eye pain ENT: Denies: Congestion, Ear pain, Epistaxis Respiratory: Denies: Cough, Dyspnea Cardiovascular: Denies: Chest pain, Dyspnea on exertion Endocrine: Denies: Fatigue, Heat or cold intolerance Gastrointestinal: Denies: Abdominal pain, Nausea, Vomiting Genitourinary: Denies: Incontinence, Retention Musculoskeletal: Denies: Arthralgia, Back pain Skin: Reports: Other (Swelling, pain L gluteal region). Denies: Bruising, Change in color Neurological: Denies: Abnormal gait, Confusion, Headache, Seizure Psychiatric: Denies: Anxiety Hematological/Lymphatic: Denies: Anemia, Blood Clots Past Medical History - SOCIAL HISTORY Smoking Status: Never smoker - RESPIRATORY Hx Respiratory Disorders: No - CARDIOVASCULAR Hx Cardio Disorders: No - NEURO Hx Neuro Disorders: No - GI Hx GI Disorders: No - Hx Genitourinary Disorders: Yes Comment:: Polycystic Ovaries - ENDOCRINE Hx Endocrine Disorders: Yes Hx Diabetes: Yes (boderline) - MUSCULOSKELETAL Hx Musculoskeletal Disorders: No - PSYCH Hx Psych Problems: Yes Hx Anxiety: Yes Hx Depression: Yes - HEMATOLOGY/ONCOLOGY Hx Hematology/Oncology Disorders: No Family Medical History Hx Diabetes: Father Hx HTN: Mother, Grandparents H&P Meds/Allergies - Allergies Allergies: Allergies Allergy/AdvReac Type Severity Reaction Status Date / Time amoxicillin [Amoxicillin] Allergy RASH Verified 04/09/16 12:39 cephalexin monohydrate Allergy RASH Verified 04/09/16 12:39 [From Keflex] Penicillins Allergy rash Verified 04/09/16 12:39 sulfamethoxazole Allergy RASH Verified 04/09/16 12:39 [From Bactrim] trimethoprim [From Bactrim] Allergy RASH Verified 04/09/16 12:39 - Active Medications Active Medications: Current Medications Clindamycin Phosphate (Cleocin 600 Mg-[id number]) 600 mg in 50 mls @ 100 mls/hr IVPB Q8HR JUAN ANTONIO Metformin HCl (Glucophage Ir) 500 mg PO BID JUAN ANTONIO Last Admin: 05/12/19 10:03 Dose: 500 mg Documented by: Morphine Sulfate (Morphine Sulfate) 4 mg IVP Q4H PRN PRN Reason: PAIN - MOD TO SEVERE (5-10) Stop: 05/18/19 23:23 Last Admin: 05/12/19 03:33 Dose: 4 mg Documented by: Ondansetron HCl (Zofran) 4 mg IVP Q6H PRN PRN Reason: NAUSEA Physical Exam - Vital Signs Vital Signs: Vital Signs - Last 24 Hrs Temp Pulse Resp BP BP Pulse Ox 05/12/19 06:41 98.0 F 82 18 132/94 98 05/12/19 00:02 97.8 F 94 H 18 156/103 97 05/11/19 22:16 98.1 F 104 H 18 121/116 100 05/11/19 20:48 99.8 F H 123 H 18 191/127 96 - General General Appearance: Alert, Oriented x3, Cooperative, No acute distress Limitations: No limitations - Head Head exam: Atraumatic, Normocephalic, Normal inspection (excessive hair growth in the facial region) Head exam detail: negative: Abrasion, Contusion, Villatoro's sign, General tenderness, Hematoma, Laceration - Eye Eye exam: Normal appearance. negative: Conjunctival injection, Periorbital swelling, Periorbital tenderness, Scleral icterus - ENT Ear exam: Normal external inspection, Other (TM's not visualized since cerumen impaction b/l). negative: Auricular hematoma, Auricular trauma Nasal Exam: negative: Active bleeding, Discharge, Dried blood, Foreign body Mouth exam: negative: Drooling, Laceration, Muffled voice, Tongue elevation - Neck Neck exam: Normal inspection. negative: Meningismus, Tenderness - Respiratory Respiratory exam: Normal lung sounds bilaterally. negative: Rales, Respiratory distress, Rhonchi, Stridor - Cardiovascular Cardiovascular Exam: Regular rate, Normal rhythm, Normal heart sounds - GI/Abdominal GI/Abdominal exam: Soft, Normal bowel sounds. negative: Rebound, Rigid, Tenderness - Rectal Rectal exam: Other (L sided erythema, mild TTP, no warmth noted. Abscess noted. ) - exam: Deferred - Extremities Extremities exam: Normal inspection. negative: Pedal edema, Tenderness - Back Back exam: Denies: CVA tenderness (R), CVA tenderness (L) - Neurological Neurological exam: Alert, Oriented X3 - Psychiatric Psychiatric exam: Normal affect, Normal mood - Skin Skin exam: Erythema Type of lesion: Abscess Distribution of rash: Other (Gluteal/perineal L buttock) Description of rash: Fluctuant Results - Labs Result Diagrams: 05/12/19 07:40 05/12/19 07:40 Labs Last 24 Hours: Laboratory Results - last 24 hr 05/11/19 05/11/19 05/11/19 20:55 20:55 20:55 WBC 9.3 RBC 5.04 Hgb 15.1 Hct 39.0 MCV 77.4 L MCH 30.0 MCHC 38.7 H RDW 14.0 Plt Count 242 MPV 10.6 H Neutrophils % 70.0 Band Neutrophils % 1.0 Eosinophils % Not Reportable Basophils % Not Reportable Absolute Neutrophils 6.67 Lymphocytes 14.0 L Monocytes 11.0 H Metamyelocytes 1.0 Platelet Estimate RBC Morphology Eosinophil Count 3.0 VBG pH Cancelled 7.47 H Sodium 126 L Potassium 4.3 Chloride 87 L Carbon Dioxide 18.0 L Anion Gap 21.0 H BUN 9 Creatinine 0.9 Estimated GFR > 60 POC Glucose Random Glucose 487 H* Lactic Acid Cancelled Calcium 8.7 Total Bilirubin 0.30 AST ALT Alkaline Phosphatase 120 H Total Protein 7.0 Albumin 3.7 L Globulin 3.3 Albumin/Globulin Ratio 1.1 Acetone, Qual Negative 05/11/19 05/11/19 05/12/19 20:55 23:08 07:40 WBC 7.4 RBC 4.53 Hgb 12.9 Hct 35.8 MCV 79.0 L MCH 28.5 MCHC 36.0 RDW 13.7 Plt Count 182 MPV 10.2 Neutrophils % 60.0 Band Neutrophils % 1.0 Eosinophils % Not Reportable Basophils % Not Reportable Absolute Neutrophils 4.58 Lymphocytes 26.0 Monocytes 9.0 Metamyelocytes Platelet Estimate Normal RBC Morphology Normal Eosinophil Count 4.0 VBG pH Sodium Potassium Chloride Carbon Dioxide Anion Gap BUN Creatinine Estimated GFR POC Glucose 321 H Random Glucose Lactic Acid 1.2 Calcium Total Bilirubin AST ALT Alkaline Phosphatase Total Protein Albumin Globulin Albumin/Globulin Ratio Acetone, Qual 05/12/19 07:40 WBC RBC Hgb Hct MCV MCH MCHC RDW Plt Count MPV Neutrophils % Band Neutrophils % Eosinophils % Basophils % Absolute Neutrophils Lymphocytes Monocytes Metamyelocytes Platelet Estimate RBC Morphology Eosinophil Count VBG pH Sodium 132 L Potassium 3.6 Chloride 95 L Carbon Dioxide 23.0 Anion Gap 14.0 BUN 8 Creatinine 0.3 L Estimated GFR > 60 POC Glucose Random Glucose 258 H Lactic Acid Calcium 8.4 L Total Bilirubin AST ALT Alkaline Phosphatase Total Protein Albumin Globulin Albumin/Globulin Ratio Acetone, Qual VTE H&P Assessment - Risk for VTE Risk for VTE: Yes Risk Level: Very Low Risk Assessment Date: 05/12/19 Risk Assessment Time: 11:09 VTE Orders Placed or Will Be Placed: Yes Plan - Detailed Diagnosis and Plan (1) Perianal abscess Current Visit: Yes Status: Acute Base Code: K61.0 - ANAL ABSCESS Priority: High Comment: - Continue IV clinda as prescribed. - No WBC elevation. - No systemic signs of infection. - Dr. Williamson to drain today and hopefully home in PM (2) Uncontrolled diabetes mellitus Current Visit: Yes Status: Acute Base Code: E11.65 - TYPE 2 DIABETES MELLITUS WITH HYPERGLYCEMIA Priority: High Comment: - Counseled extensively regarding importance of compliance of medication - Glucose reduced to 200's. - Sodium increased to 132. - Will continue to monitor. (3) DVT prophylaxis Current Visit: Yes Status: Acute Base Code: Z29.9 - ENCOUNTER FOR PROPHYLACTIC MEASURES, UNSPECIFIED Priority: Low Comment: - very low risk. - Up at tolerated. - Disposition Likely home today with oral abx.
[2019-05-12] MEDS ORDERED: LIDOCAINE 1% MDV (10MG/ML) 20ML VIAL SQ ONE (15:45)
--- NOTE | 2019-05-12 16:55 | Discharge Summary ---
Providers Discharge Summary Date: 05/12/19 Date of admission: 05/11/19 23:23 Expected Date of Discharge: 05/12/19 Attending physician: JASE CANTU M.D. Primary care physician: CHARLI SOSA N.P. Physical Exam - Vital Signs Vital Signs: Vital Signs - Last 24 Hrs Temp Pulse Resp BP BP Pulse Ox 05/12/19 09:00 82 18 05/12/19 06:41 98.0 F 82 18 132/94 98 05/12/19 00:02 97.8 F 94 H 18 156/103 97 05/11/19 22:16 98.1 F 104 H 18 121/116 100 05/11/19 20:48 99.8 F H 123 H 18 191/127 96 - General General Appearance: Alert, Oriented x3, Cooperative, No acute distress Limitations: No limitations - Head Head exam: Atraumatic, Normocephalic, Normal inspection (excessive hair growth in the facial region) Head exam detail: negative: Abrasion, Contusion, Villatoro's sign, General tenderness, Hematoma, Laceration - Eye Eye exam: Normal appearance. negative: Conjunctival injection, Periorbital swelling, Periorbital tenderness, Scleral icterus - ENT Ear exam: Normal external inspection, Other (TM's not visualized since cerumen impaction b/l). negative: Auricular hematoma, Auricular trauma Nasal Exam: negative: Active bleeding, Discharge, Dried blood, Foreign body Mouth exam: negative: Drooling, Laceration, Muffled voice, Tongue elevation - Neck Neck exam: Normal inspection. negative: Meningismus, Tenderness - Respiratory Respiratory exam: Normal lung sounds bilaterally. negative: Rales, Respiratory distress, Rhonchi, Stridor - Cardiovascular Cardiovascular Exam: Regular rate, Normal rhythm, Normal heart sounds - GI/Abdominal GI/Abdominal exam: Soft, Normal bowel sounds. negative: Rebound, Rigid, Tenderness - Rectal Rectal exam: Other (L sided erythema, mild TTP, no warmth noted. Abscess noted. ) - exam: Deferred - Extremities Extremities exam: Normal inspection. negative: Pedal edema, Tenderness - Back Back exam: Denies: CVA tenderness (R), CVA tenderness (L) - Neurological Neurological exam: Alert, Oriented X3 - Psychiatric Psychiatric exam: Normal affect, Normal mood - Skin Skin exam: Erythema Type of lesion: Abscess Distribution of rash: Other (Gluteal/perineal L buttock) Description of rash: Fluctuant Hospitalization - Hospitalization Admission Diagnosis: Tabitha-anal abscess/cellulitis. HTN. Diabetes Mellitus - Problem List/Discharge Diagnosis (1) Perianal abscess Status: Acute Base Code: K61.0 - ANAL ABSCESS Comment: - Continue IV clinda as prescribed. - No WBC elevation. - No systemic signs of infection. - Dr. Williamson to drain today and hopefully home in PM (2) Uncontrolled diabetes mellitus Status: Acute Base Code: E11.65 - TYPE 2 DIABETES MELLITUS WITH HYPERGLYCEMIA Comment: - Counseled extensively regarding importance of compliance of medication - Glucose reduced to 200's. - Sodium increased to 132. - Will continue to monitor. (3) DVT prophylaxis Status: Acute Base Code: Z29.9 - ENCOUNTER FOR PROPHYLACTIC MEASURES, UNSPECIFIED Comment: - very low risk. - Up at tolerated. - Disposition Likely home today with oral abx. - Hospitalization Course Disposition: Home, Self-Care Hospital Course: Pt has h/o ovarian cancer, uncontrolled diabetes ED course 05/11: - pt presented to ED 1 week after noticing bump in the perianal area that was enlarging. - She states that it progressively got more tender. - She states that she takes metformin at home 500mg BID and is on SSI but is not compliant. - She doesn't really check her sugar at home. - She has h/o ovarian carcinoma, which was removed. Follows with oncology Q 6 months. - Labs: glucose increased to 400's but no signs of DKA. Hyponatremia 126. - VS: afebrile, elevated BP - Pt was admitted for IV abx and abcess drainage by Dr. Williamson in AM. Pt started on metformin and clinda. Hospital course 05/12: - Glucose in the 200's - Hyponatremia improved to 132 from 128 - Dr. Fraire drained abscess without difficulty. - cleared pt to go home post procedure. - Continue PO clinda at home x 6 days. - F/u with PCP Procedures: Imaging and X-Rays 05/11/19 20:53 PELVIS W CONTRAST [CT] Stat Abnormal Labs: Abnormal Lab Results 05/11/19 05/11/19 05/11/19 Range/Units 20:55 20:55 20:55 MCV 77.4 L (81-97) fl MCHC 38.7 H (32-36) g/dl MPV 10.6 H (7.4-10.4) fl Lymphocytes 14.0 L (16-45) % Monocytes 11.0 H (0-9) % VBG pH 7.47 H (7.33-7.43) Sodium 126 L (136-145) mmol/L Chloride 87 L (98-107) mmol/L Carbon Dioxide 18.0 L (22-29) mmol/L Anion Gap 21.0 H (7-16) Creatinine (0.5-0.9) mg/dL POC Glucose (70-110) mg/dL Random Glucose 487 H* (74-109) mg/dL Calcium (8.6-10.0) mg/dL Alkaline Phosphatase 120 H (35-104) U/L Albumin 3.7 L (4.0-5.0) g/dL 05/11/19 05/12/19 05/12/19 Range/Units 23:08 07:40 07:40 MCV 79.0 L (81-97) fl MCHC (32-36) g/dl MPV (7.4-10.4) fl Lymphocytes (16-45) % Monocytes (0-9) % VBG pH (7.33-7.43) Sodium 132 L (136-145) mmol/L Chloride 95 L (98-107) mmol/L Carbon Dioxide (22-29) mmol/L Anion Gap (7-16) Creatinine 0.3 L (0.5-0.9) mg/dL POC Glucose 321 H (70-110) mg/dL Random Glucose 258 H (74-109) mg/dL Calcium 8.4 L (8.6-10.0) mg/dL Alkaline Phosphatase (35-104) U/L Albumin (4.0-5.0) g/dL Condition at Discharge: (2) Stable Discharge Medications - Discharge Medications Prescriptions: Clindamycin HCl [Cleocin HCl] 300 mg PO Q6HR 6 Days #24 capsule Home Medications: Ambulatory Orders Metformin HCl 500 mg PO BID tab 01/17/16 [Last Taken 04/08/16] Clindamycin HCl [Cleocin HCl] 300 mg PO Q6HR 6 Days #24 capsule 05/12/19 [Last Taken Unknown] Discharge Plan - Discharge Instructions Activity at Discharge: Increase Activity as Tolerated Diet at Discharge: Regular Diet Instructions: Anorectal Abscess and Anal Fistula (DC), Abscess Incision and Drainage (DC) Additional Instructions: Please call Dr. Dietz to schedule a one week hospital follow up appointment. Make sure to take metformin and insulin as prescribed to help infection heal. Also must take antibiotics as prescribed to ensure healing. Quality Measures - Quality Measures Quality Measures: Documentation of Current Medications in Medical Record, Screening for High Blood Pressure and F/U Documented - Current Medications Quality Measure: Measure #130: Documentation of Current Medications Documentation of Current Medications: <Current Medications Documented/Reviewed> [G8427] - Blood Pressure Screening Quality Measure: Screening for High Blood Pressure and Follow-Up Documented Does Patient Have Any of the Following: No Blood Pressure Classification: Hypertensive Reading Systolic Measurement: 132 Diastolic Measurement: 94 Screening for High Blood Pressure: < First Hypertensive BP, F/U Documented > [G8950] First Hypertensive Follow-up Interventions: Referral to alternative/primary care provider. - Elder Abuse Suspicion Index EASI Reference Information: Sridevi EVANS, Julita C, [place] D, Rosalind Farmer.Development and validation of a tool to assist physicians identification of elder abuse: The Elder Abuse Suspicion Index (EASI ). Journal of Elder Abuse and Neglect, 2008; 20 (3): 276-300.
== END 2019-05-12 18:00 | disposition home or self-care (01) ==
LOC: ER 20:36 → MEDSURG 23:23
PROVIDERS: ADMIT Family Medicine; ATTEND Family Medicine
DX: K61.2 Anorectal abscess (principal); E11.65 Type 2 diabetes mellitus with hyperglycemia; E28.2 Polycystic ovarian syndrome; F17.200 Nicotine dependence, unspecified, uncomplicated; Z85.43 Personal history of malignant neoplasm of ovary
CPT/HCPCS: 36416; 72193; 80048; 80053; 82009; 82800; 82948; 83605; 85027; 90686; 96365; 96375; 99220; 99285; J1885; J7030